=== PATIENT | female | born 1990 | race Caucasian/White ===

== ENCOUNTER 2024-04-22 16:12 | Outpatient (CLI) | payer BC, SELFPAY | END 2024-04-22 16:13 | disposition home or self-care (01) | LOC: NFLDREF 04-26 06:36 | PROVIDERS: PCP Family Medicine; Referring Provider Family Medicine; Visit Provider Nurse Practitioner | DX: J02.9 Acute pharyngitis, unspecified (principal); M54.9 Dorsalgia, unspecified; R82.90 Unspecified abnormal findings in urine | CPT/HCPCS: 87086 ==

== ENCOUNTER 2025-02-27 15:00 | Emergency (ER) | payer BC, SELFPAY ==
--- OUTSIDE RECORDS SUMMARY | 2025-02-27 15:02 | XMS_ITS | Clinical Summary ---
Author Organization [employer] [facility] Address [address] [place] [address] Care Team Providers Care Cdl Bulk Driver Name Role Phone Carmen Curry MD Primary Care Provider [phone] Karan Lowry MD Unavailable [phone] Allergies Active Allergy Reactions Criticality Noted Date Comments Latex Rash Low 08/10/2014 Medications sertraline 50 mg tabletIndication s:Anxiety Take 1 Tablet (50 mg) by mouth once daily in the morning. 90 Tablet 3 10/25/2024 Active levothyroxine 25 mcg tabletIndication s:Hypothyroidism , unspecified type Take 1 Tablet (25 mcg) by mouth once daily. 90 Tablet 3 10/25/2024 Active drospirenone-eth inyl estradioL (CORTES) 3-0.02 mg tabletIndication s:Abnormal uterine bleeding (AUB) Take 1 Tablet by mouth once daily. 84 Tablet 3 12/09/2024 Active spironolactone (ALDACTONE) 50 mg tabletIndication s:Hair loss Take 2 Tablets (100 mg) by mouth once daily. 60 Tablet 3 01/10/2025 Active Active Problems Problem Noted Date Diagnosed Date Pap smear for cervical cancer screening 08/07/19 24 Overview (08/07/2023): 07/28/2023: NIL/HPV negative Plan: Pap and HPV in 5 years. Hypothyroidism 11/04/2022 Thyroid antibody positive 11/04/2022 Spontaneous vaginal delivery 06/12/2021 Pneumonia due to COVID-19 virus 08/03/2020 Overview (08/03/2020): Diagnosed with COVID19 on 07/29/2020. Rh negative state in antepartum period 8 Keloid of skin 02/12/2017 Anxiety 02/12/2017 Family planning 06/16/2014 Keratosis pilaris 06/16/2014 Toxic shock syndrome (TSS) 07/17/2010 Overview (07/17/2010): 2005 Varicella Overview (05/05/2013): age 12 Resolved Problems Problem Noted Date Diagnosed Date Resolved Date Sepsis 08/04/2020 09/13/2020 COVID-19 virus infection 08/04/2020 Neutropenia 08/04/2020 09/13/2020 Thrombocytopenia 08/04/2020 09/13/2020 Pneumonia due to COVID-19 virus 08/04/2020 09/13/2020 Vaginal delivery 10/07/2017 09/13/2020 Encounter for care in third trimester of first 07/28/2017 10/07/2017 Overview (09/11/2017): GBS neg Pancytopenia 09/13/2020 Neutropenia with fever 09/13 Encounters Date Type Department Care Team Description 01/10/2025 [facility] Only [facility] [place] [id number] Fiona Sui, DO <No scans attached> 12/16/2024 Telephone [facility] [address] [facility] [phone] Fiona Siu DO 12/14/2024 4:46 PM CDT - 12/14/2024 11:59 PM CDT Hospital Encounter [facility] [address] [facility] [address] Fiona Siu, DO Bilateral ovarian cysts 12/14/2024 Travel 12/09/2024 2:30 PM CDT Office Visit [address] [place] [address] Fiona Siu DO Recheck (Abnormal uterine bleeding, got better for awhile but now off again, wanting to discuss surgery) 12/09/2024 Travel from Last 3 Months Immunizations Immunization Administration Dates Next Due [id number] 1990,1990,1990 DTaP 11/19/1991, 1,1990,07/15/18 91 DTaP-IPV (Kinrix) 11/19/1991 HIB PRP-OMP (PedvaxHIB) 08/20/1991,11/11,1990,07/15/18 91 Hepatitis B (Peds) 08/08/2003, 3,10/01/2002,08/08/19 03 Hib Conjugate, Unspecified 08/20/1991 Human Papilloma Virus Vaccine 03/20/2007, 007,09/15/2006 11/14/2006 Influenza Virus, Unspecified 03/28/2014,01/28/20 12 Influenza, IIV3 (Age >=3 years) 02/17/2024,02/26 Influenza, IIV4 06/17/2022,,03/22/2020,02/06/20 19,04/10/2018,02/12/2017 Influenza, IIV4 (=>6mos) MDV 02/06/2023 MMR 12/15/2002,08/20/1991 Meningococcal Vaccine (Menomune) 01/29/2006 Meningococcal, Unspecified 01/29/2006 Oral Polio Vaccine 11/19/1991,1990, 991 Td (Age >=7 Years) 10/01/2002 Tdap 04/04/2021,08/18/2017,08/05/2011 Tuberculin (PPD) 05/05/2013 Family History Medical History Relation Name Comments Good Health Father Cancer Maternal Grandfather Good Health Mother No Known Problems Paternal Grandmother No Known Problems Sister Relation Name Status Comments Brother Alive Father Alive Maternal Grandfather Maternal Grandmother Mother Alive Paternal Grandfather Paternal Grandmother Alive Sister Alive Social History Tobacco Use Types Packs/Day Years Used Date Smoking Tobacco: Never Passive Smoke Exposure: Never Smokeless Tobacco: Never Tobacco Cessation:Counseling Given: Not Answered Alcohol Use Standard Drinks/Week Comments Yes 0 (1 standard drink = 0.6 oz pure alcohol) social; few drinks since last period, not during pregnacy PHQ-2 Answer Date Recorded PHQ-2 TOTAL SCORE 2 10/25/2024 Social Connections Answer Date Recorded Do you often feel lonely or isolated from those around you? 0 10/25/2024 Financial Resource Strain Answer Date R ecorded Difficulty of Paying Living Expenses 3 10/25/2024 Difficulty of Paying Living Expenses Not on file 10/25/2024 Food Insecurity Answer Date Recorded Do you worry your food will run out before you are able to buy more? 1 10/25/2024 Transportation Needs Answer Date Record ed Does lack of transportation keep you from medica l appointments? 1 10/25/2024 Does lack of transportation keep you from work, meetings or getting things that you need? 1 10/25/2024 Housing Stability Answer Date Recorded What is your housing situation today? 1 10/25/2024 Interpersonal Safety Answer Date Record ed Are you being hit, kicked, p ushed or yelled at (see row info)? No 07/20/2024 Interpersonal Safety Abuse 12 - 18 Not on file 07/20/2024 Interpersonal Safety Ambulatory Vulnerability No t on file 07/20/2024 Utilities Answer Date Recorded Do you have trouble paying f or utilities (for example, heat, electricity, water, phone)? 1 10/25/2024 Comments No Sex and Gender Information Value Date Recorded Sex Assigned at Not on file Legal Sex Female 5:27 AM CONSTRUCTION FLAGGER Gender Identity Not on file Sexual Orientation Not on file Occupation Industry Job Start Date Job End Date [employer] Not on file Not on file Not on fi le Obstetrics History Para Term AB IAB SAB Ectopic Multiple Livin g Live Births 2 2 2 0 2 2 Date Outcome GA Total Labor Labor/2nd/3rd Weight Sex Type Anes PTL Patti A1 A5 Name Clin 2017 Term 40w 1d 4.29 kg (9 lb 7.3 oz) M Vag Livin g 5 6 LORETTA RICHTER Complications:None Delivery Location:[facility]) 2021 Term 39w 2d 7h 55m 5h 43m/0h 24m/1h 48m 3.86 kg (8 lb 8.2 oz) M Vag-S pont Epidur al Livin g 9 9 LORETTA RICHTER Rache l Kathr yn Saret ta, MD Complications:Category III: Absent variability + Delivery Location:Hospital ( [facility]) Last Filed Vital Signs Vital Sign Reading Time Taken Comments Blood Pressure 104/78 12/09/2024 2:24 PM CDT Pulse 66 12/09/2024 2:24 PM CDT Temperature 36.6 C (97.8 F) 07/20/2024 2:00 PM CDT Respiratory Rate 16 07/20/2024 2:00 PM CDT Oxygen Saturation 98% 07/20/2024 3:30 PM CDT Inhaled Oxygen Concentration - - Weight 101.7 kg (224 lb 3.2 oz) 12/09/2024 2:24 PM CDT Height 175.3 cm (5' 9) 10/25/2024 2:22 PM CDT Body Mass Index 33.11 10/25/2024 2:22 PM CDT Plan of Treatment Upcoming Encounters Date Type Department Care Team (Late st Contact Info) Description 03/11/2025 2:30 PM CONSTRUCTION FLAGGER Office Visit [facility] [address] [place] [phone] Fiona Patino [address] [place] [address] Health Maintenance Due Date Last Done Comments Influenza Vaccine (#1) 2024 , 02/06/2023, 06/17/2022, Additional history exists BMI (ht and wt on same day) for age 18+ 10/25/2025 10/25/2024, 10/15/2023, 07/28/2023, Additional history exists Depression screening for age 12+ 10/25/2025 10/25/2024, 07/31/2023, 07/28/2023, Additional history exists Pap test for age 21-65 07/27/2028 , 07/28/2023, 03/22/2020, Additional history exists Tetanus booster 04/04/2031 04/04/2021, 07/28, 08/05/2011, Additional history exists RSV vaccine for adults or (1 - 1-dose 75+ series) 2065 Hepatitis B series for 19+ Completed 08/07, 11/03/2002, 10/01/2002, Additional history exists HPV series for age 9-45 Addressed 08/12/19, 03/20/2007, 11/10/2006, Additional history exists Overridden with the intention of not completing the topic HIV for age 15-65 Completed 10/18/2020, , 10/26/2014, Additional history exists Hepatitis C screening for age 18-79 Completed 10/18/2020, 10/26/2014, 08/10/2014, Additional history exists Pneumococcal series for age 6-49 Aged Out No longer eligible b ased on patient's age to complete this topic Procedures Procedure Name Priority Date/Time Associated Diagnosis Comments US PELVIS COMPLETE TA AND TV Routine 12/14/2024 5:18 PM CDT Bilateral ovarian cysts HPV HIGH RISK Routine 07/28/2023 3:00 PM CDT Cervical cancer screening ANTI HIV 1/2 Routine 10/18/2020 9:40 AM CDT Early stage of (HC) ANTI HCV Routine 10/18/2020 9:40 AM CDT Early stage of (HC) from Last 3 Months or Most Recently Relevant to Health Maintenance Results * US PELVIS COMPLETE TA AND TV (12/14/2024 5:18 PM CDT) Anatomical Region Laterality Modality Pelvis Ultrasound 12/15/2024 7:03 AM CDT Narrative 12/15/2024 7:03 AM CDT For Patients: As a result of the Cures Act, medical imaging exams and procedure reports are released immediately into your electronic medical record. You may view this report before your referring provider. If you have questions, please contact your health care provider. INDICATION: Bilateral ovarian cysts. TECHNIQUE: Ultrasound pelvis transabdominal and transvaginal for better assessment or to better visualize the endometrium and ovaries. Real-time sonographic images with spectral and color Doppler imaging of the ovaries were obtained. COMPARISON: 04/30/2024 FINDINGS: Uterus: 8.9 x 5.0 x 4.7 cm. Normal echotexture of the myometrium. No masses. Endometrium: 4 mm in thickness. No sign of endometrial mass or fluid. Right ovary: 4.0 x 4.0 x 3.5 cm. Small follicles and a single dominant 1.6 cm follicle. The 3.6 cm cyst noted on the previous study is no longer present. Normal arterial and venous blood flow. Left ovary: 5.7 x 4.9 x 5.0 cm. Single 4.7 cm cyst with internal echogenicity has increased in size from the previous when it measured 3.9 cm. No obvious ovarian torsion. Cul-de-sac: No significant free fluid. Dictated by Christopher Diamond MD @ 12/15/2024 7:03:40 AM (Electronically Signed) Procedure Note Cal Diamond MD - 12/15/2024 For Patients: As a result of the Cures Act, medical imagingexams and procedure reports are released immediately into your electronicmedical record. You may view this report before your referring provider.If you have questions, please contact your health care provider. INDICATION: Bilateral ovarian cysts. TECHNIQUE: Ultrasound pelvis transabdominal and transvaginal for better assessment orto better visualize the endometrium and ovaries. Real-time sonographicimages with spectral and color Doppler imaging of the ovaries wereobtained. COMPARISON: 04/30/2024 FINDINGS: Uterus: 8.9 x 5.0 x 4.7 cm. Normal echotexture of the myometrium. Nomasses. Endometrium: 4 mm in thickness. No sign of endometrial mass or fluid. Right ovary: 4.0 x 4.0 x 3.5 cm. Small follicles and a single dominant 1.6cm follicle. The 3.6 cm cyst noted on the previous study is no longerpresent. Normal arterial and venous blood flow. Left ovary: 5.7 x 4.9 x 5.0 cm. Single 4.7 cm cyst with internalechogenicity has increased in size from the previous when it measured 3.9cm. No obvious ovarian torsion. Cul-de-sac: No significant free fluid. Dictated by Christopher Diamond MD @ 12/15/2024 7:03:40 AM (Electronically Signed) Fiona Patino DO Final Result * HPV HIGH RISK (07/28/2023 3:00 PM CDT) Pathologist [facility] TYPE 16 Negative Negative 08/01/2023 7:13 AM CDT [facility] TYPE 18 Negative Negative 08/01/2023 7:13 AM CDT [facility] OTHER HIGH RISK TYPES Negative Negative 08/01/2023 7:13 AM CDT [facility] Other (Cervical) Non-Blood / Unknown 07/28/2023 3:00 PM CDT 07/30/2023 11:59 AM CDT [facility] - 08/01/2023 7:13 AM CDT HPV types 16, 18, 31, 33, 35, 39, 45, 51, 52, 56, 58, 59, 66 and 68 DNA were undetectable or below the pre-set threshold. Methodology: Tristan Hailey 4800 HPV Test Carmen Curry MD MICROBIOLOGY Final Result [facility] [address] [place] [address], * ANTI HCV (10/18/2020 9:40 AM CDT) Pathologist [facility] HEPATITIS C ANTIBODY Non-React wally Non-React wally 10/18/2020 5:39 PM CDT [facility] Comment:Antibodies to HCV no t detected; does not exclude the possibility of exposure to HCV. Blood BLOOD SPECIMEN / Unknown Butterfly / Unknown 10/18/2020 9:40 AM CDT 10/18/2020 9:43 AM CDT us Carmen Curry MD SEND OUTS Final Result [facility] [address] [place] [address], * ANTI HIV 1/2 (10/18/2020 9:40 AM CDT) HIV-1/HIV-2 ANTIBODY Non-Reacti ve Non-Reacti ve 10/18/2020 5:33 PM CDT [facility] Comment:HIV-1 p24 and HIV-1/ HIV-2 Ab not detected. Blood BLOOD SPECIMEN / Unknown Butterfly / Unknown 10/18/2020 9:40 AM CDT 10/18/2020 9:43 AM CDT us Carmen Curry MD SEND OUTS Final Result Performing Organization Address City/[facility]/ZIP Co de Phone Number [facility] [address] [place] [address], from Last 3 Months or Most Recently Relevant to Health Maintenance Insurance [facility] [place] [address] [place] [id number] [employer] [facility] [address] [place] [phone] [employer] [facility] Member Subscriber Plan / Payer (Ef fective 2014-Present) Name:Danyell Joiner Relation to Subscriber:Employee Name:[employer] Date of :2000 (Home) Address[address] [place] [address] Payer ID:Not on file Group ID:Not on file Type:Not on file Address: [address] [address] [place] [address] [employer] [facility] Member Subscriber Plan / Payer (Ef fective 2014-Present) Name:Danyell Joiner Relation to Subscriber:Employee Name:[employer] Date of :2000 (Home) Address: [address] [place] [address] Payer ID:Not on file Group ID:Not on file Type:Not on file Address: [address] [place] [phone] Advance Directives * Full Code (Latest Code Status on File) Date Activated Date Inactivated Comments 06/12/2021 12:27 PM 06/13/2021 10:01 PM Question Answer Comments Code Status Discussion: Reviewed Preferences * Full Code Date Activated Date Inactivated Comments 08/04/2020 3:23 AM 08/09/2020 8:49 PM Question Answer Comments Code Status Discussion: Not Discussed Care Teams Cdl Bulk Driver Relationship Specialty Start Date End Date Carmen Curry MD [address] [place] [address] [place] [address] PCP - General 10/20/06 Karan Lowry MD [address] [facility] [address] [place] [address] Rheumatology Rheumatology 09/16/12
[2025-02-27 15:09] VITALS: BP 120/82; PULSE 74; RESP 18; TEMP 36.1; O2SAT 98; BMI 33.5
--- NOTE | 2025-02-27 15:26 | CRLHL7_ITS ---
For Patients: As a result of the Century Cures Act, medical imaging exams and procedure reports are released immediately into your electronic medical record. You may view this report before your referring provider. If you have questions, please contact your health care provider. INDICATION: Right upper quadrant pain TECHNIQUE: Ultrasound abdomen limited. Sonographic images of the right upper quadrant were obtained using sanchez-scale and color Doppler images. COMPARISON: None. FINDINGS: Gallbladder: Multiple gallbladder stones are present. There is suggestion of mild thickening of the gallbladder wall. No pericholecystic fluid. There is sonographic tenderness to palpation. Common bile duct: 2 mm. IMPRESSION: Cholelithiasis with mild thickening of the gallbladder wall and sonographic tenderness to palpation likely representing early cholecystitis changes. Dictated by Roberto Carlos Acevedo MD @ 02/27/2025 4:54:21 PM (Electronically Signed)
[2025-02-27 15:43] LABS: Appearance Urine Cloudy (Clear)
[2025-02-27 16:08] LABS: Hematocrit* 40.8 % (33.0-51.0); Hemoglobin* 13.3 gm/dL (12.0-16.0); Immature Granulocytes Abs Auto 0.00 K/uL (0.00-0.30); Immature Granulocytes Pct Auto 0.0 %; Lymphocytes Absolute Auto 2.33 K/uL (0.90-2.90); Mean Corpuscular HGB Conc 33 gm/dL (32-36); Mean Corpuscular Hemoglobin 30 pg (26-34); Mean Corpuscular Volume 93 fL (80-100); RDW Coefficient of Variation % 12.9 % (11.5-15.5); Red Blood Count* 4.37 m/uL (4.00-5.20); White Blood Count* 5.88 K/uL (4.50-11.00)
[2025-02-27 16:20] LABS: Troponin, Point-of-Care* 0.00 ng/ml (0.01-0.04)
[2025-02-27 16:22] LABS: Slide Review Reflex No
[2025-02-27 16:37] LABS: Albumin* 4.4 g/dL (3.3-5.0); Chloride* 109 mmol/L (96-114); Potassium* 3.6 mmol/L (3.6-5.1); Sodium* 140 mmol/L (135-149)
[2025-02-27 16:39] LABS: Alanine Aminotransferase* 21 U/L (4-35); Aspartate Amino Transferase* 26 U/L (12-35); Blood Urea Nitrogen* 11 mg/dL (5-24); Creatinine* 0.9 mg/dL (0.5-1.5); Est. Creatinine Clearance* 92.05; Estimated Glomerular Filt Rate 86 ml/min; HCG Qualitative Serum* Negative (Negative)
[2025-02-27 16:40] LABS: Alkaline Phosphatase* 71 U/L (40-150); Anion Gap 8 mEq/L (7-15); Bilirubin Total* 0.3 mg/dL (0.1-1.5); Calcium* 9.1 mg/dL (8.4-10.6); Carbon Dioxide* 23 mmol/L (20-32); Glucose* 98 mg/dL (60-115); Total Protein* 7.7 g/dL (6.0-8.3)
--- NOTE | 2025-02-27 16:45 | ED_ITS ---
HPI - Abdominal Pain General Date Seen: 02/27/25 Chief Complaint: Abdominal Pain Stated Complaint: sharp pain in rib cage, nauseous Time Seen by Provider: 02/27/25 15:21 Source: patient Mode of arrival: ambulatory Limitations: no limitations History of Present Illness HPI narrative: Patient is a 34-year-old female presenting to the emergency department for right upper quadrant pain. She states for the past 2 weeks she has been having right upper quadrant pain that gets worse after she eats. Unsure if it is any particular foods that makes symptoms worse. She states she has been having some loose stools but no watery diarrhea. Has had previous appendectomy. Denies ever having symptoms like this before. Denies any other abdominal surgeries Related Data Home Medications ?Medication ?Instructions ?Recorded ?Confirmed drospirenone 3 mg-ethinyl 1 tab PO DAILY 04/22/2403/29 estradiol 0.02 mg tablet levothyroxine 25 mcg tablet 25 mcg PO DAILY 04/22/24 1 06/23/23 sertraline 50 mg tablet 50 mg PO DAILY 04/22/2403/29 spironolactone 50 mg tablet mg PO 04/22/24 04/22/24 Allergies Allergy/AdvReac Type Severity Reaction Status Date / Time Latex, Natural Rubber Allergy Rash Verified 02/27/25 15:08 Exam Const: Vital Signs, click to edit/add: Vital Signs - 24 hr 02/27/25 15:09 02/27/25 17:15 Temperature 97.0 F L Pulse Rate [Right Pulse Oximeter] 74 Respiratory Rate 18 Blood Pressure 124/83 Blood Pressure [Ri ght Upper Arm] 120/82 Pulse Oximetry 98 Oxygen Delivery Me thod Room Air Course Vital Signs Vital signs: Initial Vital Signs Temperature 97.0 F L 02/27/25 15:09 Temperature Source Temporal Artery Scan 02/27/25 15:09 Pulse Rate 74 02/27/25 15:09 Respiratory Rate 18 02/27/25 15:09 Blood Pressure 120/82 02/27/25 15:09 Blood Pressure Mean 94 02/27/25 15:09 Blood Pressure Position Sitting 02/27/25 15:09 Pulse Oximetry 98 02/27/25 15:09 Oxygen Delivery Method Room Air 02/27/25 15:09 Vital Signs Temperature 97.0 F L 02/27/25 15:09 Pulse Rate 74 02/27/25 15:09 Respiratory Rate 18 02/27/25 15:09 Blood Pressure 120/82 02/27/25 15:09 Pulse Oximetry 98 02/27/25 15:09 Oxygen Delivery Method Room Air 02/27/25 15:09 Temperature 97.0 F L 02/27/25 15:09 Pulse Rate 74 02/27/25 15:09 Respiratory Rate 18 02/27/25 15:09 Blood Pressure 124/83 02/27/25 17:15 Pulse Oximetry 98 02/27/25 15:09 Oxygen Delivery Method Room Air 02/27/25 15:09 Medications Administered Medications: Generic Name Dose Route Start Last Admin Trade Name Freq PRN Reason Stop Dose Admin Ondansetron HCl 4 mg 02/27/25 17:03 02/27/25 17:09 Ondansetron Odt 4 Mg Tab PO 02/27/25 17:04 4 mg ONCE ONE Administration Oxycodone/Acetaminophen 1 tab 02/27/25 17:03 02/27/25 17:09 Oxycodone/Apap 5-325 Tablet PO 02/27/25 17:04 1 tab ONCE ONE Administration MDM - Abdominal Pain MDM Narrative Medical decision making narrative: Patient is a 34-year-old female presenting to emergency department for right upper quadrant abdominal pain. Symptoms seem consistent with gallbladder disease. Will do an ultrasound of the right upper quadrant. Will also order CBC, CMP to look for signs of cholecystitis, choledocholithiasis. With right upper quadrant pain this could be referred pain from pyelonephritis and urinalysis ordered. Lab work returned showing no concerning abnormalities. Urinalysis does show signs of a UTI but she is not having any urinary tract symptoms at this time. Will hold off on treating unless we do not have a better diagnosis. Ultrasound returned showing cholelithiasis with mild thickening of the gallbladder concerning for early cholecystitis. I spoke to Dr. Veronica of general surgery who recommends pain medication and nausea medicine and follow-up in clinic tomorrow for surgery on Friday or Friday. Does not recommend antibiotics at this time. Considering symptoms are much more consistent with cholelithiasis/cholecystitis I do not believe we need to treat her for UTI. Did give her oxycodone for pain and Zofran for nausea. Patient is agreeable to this plan. She agrees with discharge. Medication prescribed via instymeds. Lab Data Labs: Lab Results 02/27/25 02/27/25 02/27/25 Range/Units 15:26 15:34 16:01 WBC 5.88 (4.50-11.00) K/uL RBC 4.37 (4.00-5.20) m/uL Hgb 13.3 (12.0-16.0) gm/dL Hct 40.8 (33.0-51.0) % MCV 93 (80-100) fL MCH 30 (26-34) pg MCHC 33 (32-36) gm/dL RDW Coeff of Kerline 12.9 (11.5-15.5) % Plt Count 231 (140-440) K/uL Neut % (Auto) 51.1 (42.0-72.0) % Lymph % (Auto) 39.6 (20-44) % [place] % (Auto) 6.6 (0.0-11.0) % Eos % (Auto) 2.2 (0.0-7.0) % Baso % (Auto) 0.5 (0.0-3.0) % Neut # (Auto) 3.00 (1.7-7.0) K/uL Lymph # (Auto) 2.33 (0.90-2.90) K/uL [place] # (Auto) 0.40 (0.00-0.90) K/UL Eos # (Auto) 0.13 (0.00-0.50) K/uL Baso # (Auto) 0.03 (0.00-0.30) K/uL Abs Immat Gran (auto) 0.00 (0.00-0.30) K/uL Imm/Tot Granulo (auto) 0.0 % Sodium 140 (135-149) mmol/L Potassium 3.6 (3.6-5.1) mmol/L Chloride 109 (96-114) mmol/L Carbon Dioxide 23 (20-32) mmol/L Anion Gap 8 (7-15) mEq/L BUN 11 (5-24) mg/dL Creatinine 0.9 (0.5-1.5) mg/dL Estimated Creat Clear 92.05 Estimated GFR 86 ml/min Glucose 98 (60-115) mg/dL Calcium 9.1 (8.4-10.6) mg/dL Magnesium 1.9 (1.5-2.6) mg/dL Total Bilirubin 0.3 (0.1-1.5) mg/dL AST 26 (12-35) U/L ALT 21 (4-35) U/L Alkaline Phosphatase 71 (40-150) U/L Total Protein 7.7 (6.0-8.3) g/dL Albumin 4.4 (3.3-5.0) g/dL HCG, Qual Negative (Negative) Urine Color Yellow (Yellow) Urine Appearance Cloudy A (Clear) Urine pH 8.0 (5.0-8.5) Ur Specific Foster 1.020 (1.000-1.030) Urine Protein 1+ A (Negative) Urine Glucose (UA) Negative (Negative) Urine Ketones Trace A (Negative) Urine Blood 3+ A (Negative) Urine Nitrite Negative (Negative) Urine Bilirubin Negative (Negative) Urine Urobilinogen 0.2 (0.2-1.0) Ur Leukocyte Esterase 1+ A (Negative) Urine RBC 10-25 A (0-2) Urine WBC 10-25 A (0-5) Ur Squamous Epith Cells Few (None-Few) Urine Bacteria Moderate A (None) POC Troponin I 0.00 L (0.01-0.04) ng/ml Imaging Data US - abdomen: Attestation: I have reviewed the pertinent imaging results. Radiologist's impression: Cholelithiasis with mild thickening of the gallbladder wall and sonographic tenderness to palpation likely representing early cholecystitis changes. Dictated by Roberto Carlos Acevedo MD @ 02/27/2025 4:54:21 PM Discharge Plan Discharge Clinical Impression: Cholelithiasis Qualifiers: Cholelithiasis location: gallbladder Cholecystitis presence: with cholecystitis Cholecystitis acuity: unspecified acuity Biliary obstruction: without biliary obstruction Qualified Code(s): K80.10 - Calculus of gallbladder with chronic cholecystitis without obstruction Patient Disposition: Home, Self-Care Condition: Stable Instructions: Gallstones (ED) Additional Instructions: You have gallstones and do show concerns for early signs of infection. You will an appointment tomorrow at 11:00 at the [facility]. Their number is [phone]. Oxycodone and Zofran prescribed via instymeds. Please return immediately for new or worsening symptoms or if you are unable to tolerate the symptoms at home. The oxycodone does not have Tylenol with it so you can take Tylenol. Can also use ibuprofen. If you need to you can cut the oxycodone in half. Prescriptions: No Action drospirenone-ethinyl estradiol 3-0.02 mg tablet 1 tab PO DAILY levothyroxine 25 mcg tablet 25 mcg PO DAILY spironolactone 50 mg tablet PO sertraline 50 mg tablet 50 mg PO DAILY Follow Up/Referrals: Carmen Curry MD [Primary Care Provider, Family Practice] Stand Alone Forms: [employer] Info Instructions
[2025-02-27] MEDS: OxyCODONE/APAP 5-325 TABLET 1 TAB PO (17:09)
[2025-02-27] MEDS: ONDANSETRON ODT 4 MG TAB PO (17:09)
[2025-02-27 17:15] VITALS: BP 124/83
[2025-02-27 17:16] VITALS: PULSE 71; O2SAT 99
[2025-02-27 17:30] VITALS: PULSE 73; O2SAT 97
[2025-02-27 17:31] VITALS: BP 110/79; PULSE 71; O2SAT 99
[2025-02-27 17:32] VITALS: BP 122/79; PULSE 71; O2SAT 100
== END 2025-02-27 17:34 | disposition home or self-care (01) ==
PROVIDERS: Emergency Provider Student in an Organized Health Care Education/Training Program; PCP Family Medicine
DX: K80.10 Calculus of gallbladder with chronic cholecystitis without obstruction (principal)
CPT/HCPCS: 36415; 76705; 80053; 81001; 83690; 83735; 84484; 84703; 85025; 87086; 99284; 99285; A9270

== ENCOUNTER 2025-03-02 06:09 | Day surgery (SDC) | payer BC, SELFPAY ==
[2025-03-02] VITALS (12 sets, daily range): BP systolic 110–137; BP diastolic 67–92; PULSE 62–76; RESP 16; TEMP 36.6–36.8; O2SAT 93–98; BMI 32.8
[2025-03-02] MEDS: LACTATED RINGERS 1000 ML 1,000 ML 100 ML IV ×2 (06:45→08:45)
[2025-03-02] MEDS: SODIUM CHLORIDE 0.9 % (FLUSH) 10 ML SYRINGE IVF (07:05)
--- NOTE | 2025-03-02 07:09 | W.PM.H&PU ---
History & Physical Update History & Physical Update H&P Reviewed and patient assessed: No changes noted
[2025-03-02] MEDS: BUPIVACAINE 0.25% 30 ML INJECTION (08:05)
--- NOTE | 2025-03-02 08:20 | P.GSOP_ITS ---
Operative Note Date of procedure: 03/02/25 Indications: 34-year-old female presented to surgery clinic after evaluation in the emergency room for right upper quadrant abdominal pain. Patient complained of diarrhea for the last 1.5 weeks. Patient states that her pain was present for 7-10 days prior to her clinic visit and was described as intermittent. The pain is described as ?tightening? in the upper abdomen right more than left. Prior to coming to the emergency room, the pain localized more to the right upper quadrant. Patient stated that eating anything makes the pain worse. She was passing gas. Patient was discharged from emergency room with close follow-up in clinic. Patient took Tylenol for pain but the pain did not improve and patient could not sleep well. Upon her workup in the emergency room she was found to have normal WBC. Liver function tests were normal. Patient had a gallbladder ultrasound that showed presence of cholelithiasis, the gallbladder wall was measured at 4 mm, common bile duct of 2 mm, and patient had positive Krause sign during her ultrasound. On clinical exam patient had mild tenderness to palpation in the left upper quadrant and increased tenderness to palpation in the right upper quadrant with positive Krause sign. Given patient's clinical history and her physical exam, acute cholecystitis was suspected, and laparoscopic cholecystectomy was recommended. The procedure was cussing detail. The risks associated procedure including infection, bleeding, injury to intra- abdominal organs, injury to the common bile duct, and the need for additional procedures were all discussed with the patient, and she agreed to proceed. Procedure Description: After discussing the risks and benefits of the procedure, the patient signed informed consent.? The operative site was marked and the patient was brought to the operating room and placed on the operating table in supine position.? Care was taken to pad the patient's pressure points.?? The patient was then intubated by anesthesia.?? The operative site was then prepped and draped in the usual sterile fashion.? A time-out was then performed. A 5-mm laparoscopy port was placed in the left upper quadrant guided by a 5-mm laparoscope placed into a translucent trochar.~ Passage through the layers of the abdominal wall was visualized with the laparoscope.~ A pneumoperitoneum was established. A 0-degree 5-mm laparoscope was advanced into the abdomen. The abdomen was briefly surveyed, and no adhesions were noted. A 10-mm port were placed infraumbilically and two more 5 mm ports were placed on the right under direct visualization by laparoscope. The camera was then changed to 10 mm 30- degree scope and placed into the abdomen through the 10 mm port. The left upper quadrant port entrance was examined and no injury to intra-abdominal organs was identified. The gallbladder was identified, the fundus grasped and retracted cephalad. Omentum was overlying the gallbladder. Those omental adhesions were taken down with hook cautery. The infundibulum was grasped and retracted laterally, exposing the peritoneum overlying the triangle of Calot. This was then divided and exposed in a blunt fashion and with hook cautery. Common bile duct was not identified but care was taken not to injure it. The cystic duct was clearly identified and bluntly dissected circumferentially. Cystic artery was identified and tissues around it were dissected off. The cystic artery and the cystic duct were clearly going into the gallbladder. The cystic duct was then doubly ligated with surgical clips on the patient's side and singly clipped on the gallbladder side and divided. The cystic artery was then similarly ligated with clips and divided as well. The gallbladder was dissected from the liver bed in retrograde fashion using hookcautery. No significant edema was noted in the gallbladder wall. The gallbladder was placed into an Endo-Catch bag and removed through the infraumbilical incision. Surgical site was examined for bleeding. No bleeding was seen in the surgical field. The fascia of the infraumbilical incision was then closed with 0-0 vicryl interrupted stitches using Manuel Alycia needle under direct visualization. Pneumoperitoneum was completely reduced after viewing removal of the trocars under direct vision. The skin was then closed with 4-0 monocryl and steristrips were applied. Instrument, sponge, and needle counts were correct at closure and at the conclusion of the case. The patient was transferred to PACU in stable condition. Findings: Omentum overlying the gallbladder suggestive of inflammation but no gallbladder wall edema. Anesthesia: GETA Surgeon: Quita Veronica MD Estimated blood loss (mL): 5 Specimen: Gallbladder Condition: stable Disposition: PACU
--- NOTE | 2025-03-02 08:31 | P.ANES_ITS ---
Anesthesia Charges Start Date/Time Anesthesia Start Date: 03/02/25 Anesthesia Start Time: 07:12 Stop Date/Time Anesthesia Stop Date: 03/02/25 Anesthesia Stop Time: 08:24 Coding CPT Codes CPT Codes: ANESTH SURG UPPER ABDOMEN - 81499 ([id number]) P2 - PATIENT W/MILD SYST DISEASE, QK - CREDIT ADVISOR 2-4 CNCRNT ANES PROC
--- NOTE | 2025-03-02 08:31 | W.ANESCHARGE ---
Anesthesia Charges Start Date/Time Anesthesia Start Date: 03/02/25 Anesthesia Start Time: 07:12 Stop Date/Time Anesthesia Stop Date: 03/02/25 Anesthesia Stop Time: 08:24 Coding CPT Codes CPT Codes: ANESTH SURG UPPER ABDOMEN - 26090 ([id number]) P2 - PATIENT W/MILD SYST DISEASE, QK - RADIOLOGY AIDE 2-4 CNCRNT ANES PROC
[2025-03-02] MEDS: HYDROCODONE-ACETAMIN 5-325 MG 1 TAB PO (09:10)
--- NOTE | 2025-03-02 09:43 | P.ANES_ITS ---
Anesthesia Charges Start Date/Time Anesthesia Start Date: 03/02/25 Anesthesia Start Time: 07:12 Stop Date/Time Anesthesia Stop Date: 03/02/25 Anesthesia Stop Time: 08:24 Coding CPT Codes CPT Codes: ANESTH SURG UPPER ABDOMEN - 63128 ([id number]) QK - SOCCER REFEREE 2-4 CNCRNT ANES PROC, QX - ACCOUNTING BOOKKEEPER SVC W/ MD MED DIRECTION, P2 - PATIENT W/MILD SYST DISEASE
--- NOTE | 2025-03-02 09:43 | W.ANESCHARGE ---
Anesthesia Charges Start Date/Time Anesthesia Start Date: 03/02/25 Anesthesia Start Time: 07:12 Stop Date/Time Anesthesia Stop Date: 03/02/25 Anesthesia Stop Time: 08:24 Coding CPT Codes CPT Codes: ANESTH SURG UPPER ABDOMEN - 02794 ([id number]) QK - PILLAR MAN 2-4 CNCRNT ANES PROC, QX - TIN ASSORTER SVC W/ MD MED DIRECTION, P2 - PATIENT W/MILD SYST DISEASE
== END 2025-03-02 09:50 | disposition home or self-care (01) ==
PROVIDERS: PCP Family Medicine; Visit Provider Surgery
PROC: 0FT44ZZ Resection of Gallbladder, Percutaneous Endoscopic Approach (ICD-10-PCS; CPT 47562; principal; 2025-03-02 07:30)
DX: K80.10 Calculus of gallbladder with chronic cholecystitis without obstruction (principal); R10.11 Right upper quadrant pain; R19.7 Diarrhea, unspecified
CPT/HCPCS: 47562; 00790; A9270; J0330; J0665; J0690; J1100; J1630; J2250; J2405; J2704; J3010; J3475; J3490; J7120

== ENCOUNTER 2025-03-17 11:55 | Outpatient (CLI) | payer BC, SELFPAY | END 2025-03-17 11:56 | disposition home or self-care (01) | LOC: NFLDREF 11:57 | PROVIDERS: PCP Family Medicine; Visit Provider Surgery | DX: G89.18 Other acute postprocedural pain (principal); K81.0 Acute cholecystitis | CPT/HCPCS: 80076 ==